=== PATIENT | male | born 1980 | race African-American/Black ===

== ENCOUNTER 2017-03-24 12:33 | Emergency (ER) | payer OTHER | END 2017-03-24 13:30 | disposition home or self-care (01) | LOC: CED 12:33 → CFTX 12:33 | DX: K64.4 Residual hemorrhoidal skin tags (principal) | CPT/HCPCS: 99282 ==

== ENCOUNTER 2017-05-18 15:19 | Emergency (ER) | payer OTHER ==
[~2017-05-18] VITALS: Ht 154.9 cm; Wt 81.6 kg
== END 2017-05-18 18:02 | disposition home or self-care (01) ==
LOC: CFTX 15:19 → CED 15:19 → CFTX 17:40
DX: K64.4 Residual hemorrhoidal skin tags (principal)
CPT/HCPCS: 99282